=== PATIENT | female | born 1960 | race African-American/Black ===

== ENCOUNTER 2022-01-07 02:41 | Inpatient (IN) | payer OTHER ==
[~2022-01-07] VITALS: Ht 165.1 cm; Wt 80.9 kg
[~2022-01-07 02:41] MED LIST: ALBUTEROL; ATOR10TA MT; FLUT1DIS3 INH; FURO40TA5 MT; HYDR-4001 PO; LOSA100T3 PO; NICO-681 TD; NIFE90TA2 MT; P20 MT; ZOLP5TAB2 MT
[2022-01-07] MEDS ORDERED: NITROGLYCERIN 0.4MG TABLET SL SL PRN (03:30)
[2022-01-07] MEDS ORDERED: ASPIRIN 81MG TABLET PO ONE (03:30)
[2022-01-07 04:15] LABS: HEMATOCRIT. 41.2 % (36.0-48.0); HEMOGLOBIN. 13.6 g/dL (12.0-16.0); MEAN CORPUSCULAR HEMOGLOBIN 32.6 pg (28.0-32.0); MEAN CORPUSCULAR VOLUME 98.7 fL (81.0-99.0); MEAN PLATELET VOLUME 8.9 fl (7.4-10.4); PLATELET 158 x1000/uL (130-400); RED BLOOD CELL COUNT 4.18 mill/uL (4.2-5.4); RED CELL DISTRIBUTION WIDTH 14.5 % (11.6-14.6)
[2022-01-07 04:33] LABS: CHLORIDE 103 mEq/L (98-107)
[2022-01-07] MEDS ORDERED: CEFTRIAXONE 1 G PREMIX 50 ML IV ONE (05:45)
[2022-01-07] MEDS ORDERED: AZITHROMYCIN 500MG/250ML 250 ML IV ONE (05:45)
[2022-01-07] MEDS ORDERED: ALBUTEROL (0.083%) 2.5MG/3ML NEB HHN SCH (06:00)
[2022-01-07] MEDS ORDERED: ALBUTEROL (0.083%) 2.5MG/3ML NEB ONE (06:34)
[2022-01-07] MEDS ORDERED: ACETAMINOPHEN 325MG TABLET PO PRN ×2 (08:00)
[2022-01-07] MEDS ORDERED: MAGNESIUM/ALUMINUM HYDROXIDE/SIMETHICONE 30ML UDC PO PRN (08:00)
[2022-01-07] MEDS ORDERED: CLONIDINE 0.1MG TABLET PO PRN (08:00)
[2022-01-07] MEDS ORDERED: GUAIFENESIN 200MG/10ML SUGAR FREE UDC PO PRN (08:00)
[2022-01-07] MEDS ORDERED: DOCUSATE SODIUM 100MG CAPSULE PO PRN (08:00)
[2022-01-07] MEDS ORDERED: IPRATROPIUM/ALBUTEROL 0.5-3(2.5)MG/3ML NEB NEB PRN (08:00)
[2022-01-07] MEDS ORDERED: ONDANSETRON HCL 4MG/2ML INJ IV PRN (08:00)
[2022-01-07] MEDS ORDERED: HYDROCODONE/ACETAMINOPHEN 5/325MG TABLET PO PRN (08:00)
[2022-01-07] MEDS ORDERED: POTASSIUM CHLORIDE 20MEQ TABLET SR PO NR (09:00)
[2022-01-07 09:10] VITALS: BP 159/88
[2022-01-07] MEDS ORDERED: KCL 20MEQ/100ML PREMIX 100 ML IV NR ×2 (09:30→13:00)
[2022-01-07 09:39] VITALS: BP 159/88
[2022-01-07 09:49] LABS: CREATINE KINASE 80 IU/L (26-192); CREATINE KINASE MB FRACTION < 1.0 ng/mL (0.5-3.6)
[2022-01-07] MEDS: LOSARTAN POTASSIUM 100 MG TABLET PO SCH (10:12)
[2022-01-07] MEDS: ENOXAPARIN 40MG/0.4ML SYR SUBCUT SCH (10:13)
[2022-01-07] MEDS: NIFEDIPINE XL 90MG TAB PO SCH (10:13)
[2022-01-07] MEDS: FUROSEMIDE 40MG/4ML VIAL IVP SCH (10:14)
[2022-01-07 10:15] LABS: PLATELET ESTIMATE NORMAL
[2022-01-07] MEDS ORDERED: NALOXONE HCL 0.4MG/ML VIAL IV PRN (11:30)
[2022-01-07 12:00] VITALS: BP 140/68
[2022-01-07] MEDS ORDERED: IOHEXOL-350 100 ML BOTTLE ONE (13:48)
[2022-01-07] MEDS: IPRATROPIUM/ALBUTEROL 0.5-3(2.5)MG/3ML NEB NEB SCH ×2 (14:16→19:46)
[2022-01-07] MEDS ORDERED: SODIUM CHLORIDE 3% FOR INH 4ML UD NEB INH NR (15:00)
[2022-01-07 15:32] LABS: CLARITY URINE CLOUDY (CLEAR); COLOR URINE YELLOW (YELLOW); KETONES URINE NEGATIVE (NEGATIVE); LEUKOCYTE ESTERASE URINE 2+ (NEGATIVE); NITRITE URINE NEGATIVE (NEGATIVE); OCCULT BLOOD URINE TRACE (NEGATIVE); PH URINE 5.5 (4.5-8.0); PROTEIN URINE TRACE (NEGATIVE); SPECIFIC GRAVITY URINE 1.011 (1.005-1.030)
[2022-01-07 16:00] VITALS: BP 114/73
[2022-01-07] MEDS: ACETYLCYSTEINE 100MG/ML 10% VIAL 4ML INH SCH (16:36)
[2022-01-07 20:00] VITALS: BP 130/77
[2022-01-07] MEDS: ATORVASTATIN CALCIUM 10MG TABLET PO SCH (20:50)
[2022-01-07] MEDS: FAMOTIDINE 20MG TABLET PO SCH (20:50)
[2022-01-07 21:00] LABS: CREATINE KINASE 73 IU/L (26-192); CREATINE KINASE MB FRACTION < 1.0 ng/mL (0.5-3.6)
[2022-01-07] MEDS: ZOLPIDEM TARTRATE 5MG TABLET PO PRN (21:15)
[2022-01-08] VITALS: BP 143/79
[2022-01-08] MEDS: IPRATROPIUM/ALBUTEROL 0.5-3(2.5)MG/3ML NEB NEB SCH ×4 (00:50→21:20)
[2022-01-08] MEDS: ACETYLCYSTEINE 100MG/ML 10% VIAL 4ML INH SCH ×4 (00:51→21:20)
[2022-01-08 01:16] LABS: CREATINE KINASE 60 IU/L (26-192); CREATINE KINASE MB FRACTION < 1.0 ng/mL (0.5-3.6)
[2022-01-08 04:00] VITALS: BP 138/86
[2022-01-08] MEDS: AZITHROMYCIN 500 MG in DEXT 5% WATER 250 ML IV SCH (05:46)
[2022-01-08] MEDS ORDERED: AZITHROMYCIN 500 MG in DEXT 5% WATER 250 ML IV SCH (06:00)
[2022-01-08] MEDS ORDERED: CEFTRIAXONE 1,000 MG in DEXTROSE 5% WATER 50 ML IV SCH (06:00)
[2022-01-08 07:15] LABS: HEMATOCRIT. 36.5 % (36.0-48.0); MEAN CORPUSCULAR HEMOGLOBIN 32.6 pg (28.0-32.0); MEAN PLATELET VOLUME 8.8 fl (7.4-10.4); PLATELET 145 x1000/uL (130-400); RED BLOOD CELL COUNT 3.69 mill/uL (4.2-5.4); RED CELL DISTRIBUTION WIDTH 14.9 % (11.6-14.6)
[2022-01-08 08:00] VITALS: BP 127/72
[2022-01-08 10:02] LABS: CHLORIDE 103 mEq/L (98-107)
[2022-01-08 10:25] LABS: HDL CHOLESTEROL 56 mg/dL (40-59); LDL CHOLESTEROL 38 mg/dL (5-100); T4 FREE 1.33 ng/dL (0.76-1.46)
[2022-01-08] MEDS: LOSARTAN POTASSIUM 100 MG TABLET PO SCH (10:49)
[2022-01-08] MEDS: ENOXAPARIN 40MG/0.4ML SYR SUBCUT SCH (10:49)
[2022-01-08] MEDS: FAMOTIDINE 20MG TABLET PO SCH ×2 (10:49→21:43)
[2022-01-08] MEDS: NIFEDIPINE XL 90MG TAB PO SCH (10:49)
[2022-01-08] MEDS: FUROSEMIDE 40MG/4ML VIAL IVP SCH (10:50)
[2022-01-08] MEDS: CEFTRIAXONE 1,000 MG in DEXTROSE 5% WATER 50 ML IV SCH (10:50)
[2022-01-08 12:00] VITALS: BP 148/70
[2022-01-08] MEDS ORDERED: POTASSIUM CHLORIDE 20MEQ TABLET SR PO SCH (12:00)
[2022-01-08] MEDS ORDERED: KCL 20MEQ/100ML PREMIX 100 ML IV SCH (13:00)
[2022-01-08] MEDS: SODIUM CHLORIDE 0.45% 1,000 ML IV SCH (15:01)
[2022-01-08 16:00] VITALS: BP 109/68
[2022-01-08 16:03] LABS: PLATELET ESTIMATE NORMAL
[2022-01-08 20:00] VITALS: BP 128/66
[2022-01-08] MEDS: ATORVASTATIN CALCIUM 10MG TABLET PO SCH (21:43)
[2022-01-08] MEDS: ZOLPIDEM TARTRATE 5MG TABLET PO PRN (23:36)
[2022-01-09] VITALS: BP 117/73
[2022-01-09] MEDS: IPRATROPIUM/ALBUTEROL 0.5-3(2.5)MG/3ML NEB NEB SCH ×3 (01:58→14:02)
[2022-01-09] MEDS: SODIUM CHLORIDE 0.45% 1,000 ML IV SCH (02:26)
[2022-01-09 04:00] VITALS: BP 120/79
[2022-01-09] MEDS: AZITHROMYCIN 500 MG in DEXT 5% WATER 250 ML IV SCH (06:23)
[2022-01-09 06:34] LABS: HEMOGLOBIN 11.7 g/dL (12.0-16.0); MEAN CORPUSCULAR VOLUME 98.6 fL (81.0-99.0); PLATELET 158 x1000/uL (130-400); RED BLOOD CELL COUNT 3.55 mill/uL (4.2-5.4)
[2022-01-09 07:13] LABS: CHLORIDE 102 mEq/L (98-107)
[2022-01-09 07:23] LABS: PHOSPHORUS 3.4 mg/dL (2.5-4.9)
[2022-01-09 08:02] VITALS: BP 120/75
[2022-01-09] MEDS: ACETYLCYSTEINE 100MG/ML 10% VIAL 4ML INH SCH (08:05)
[2022-01-09] MEDS ORDERED: POTASSIUM CHLORIDE 20MEQ/PACKET PO NR (08:45)
[2022-01-09] MEDS: FUROSEMIDE 40MG/4ML VIAL IVP SCH (08:47)
[2022-01-09] MEDS: CEFTRIAXONE 1,000 MG in DEXTROSE 5% WATER 50 ML IV SCH (08:48)
[2022-01-09] MEDS: FAMOTIDINE 20MG TABLET PO SCH (08:48)
[2022-01-09] MEDS: ENOXAPARIN 40MG/0.4ML SYR SUBCUT SCH (08:48)
[2022-01-09] MEDS: LOSARTAN POTASSIUM 100 MG TABLET PO SCH (08:48)
[2022-01-09] MEDS: NIFEDIPINE XL 90MG TAB PO SCH (08:48)
[2022-01-09 12:03] VITALS: BP 139/87
[2022-01-09] MEDS ORDERED: AZIT250T12 PO (13:01)
[2022-01-09] MEDS ORDERED: ALBU6.7H15 INH (13:01)
[2022-01-09] MEDS ORDERED: AMOX1TAB16 MT (13:01)
[2022-01-09] MEDS ORDERED: ZOLP5TAB2 PO (13:08)
[2022-01-09 13:49] VITALS: BP 139/87
== END 2022-01-09 14:50 | disposition home or self-care (01) | DRG 193 ==
LOC: ER 03:08 → 8WST 05:39 → SUPCPDRO 07:09 → ENRESERV 07:42
PROVIDERS: ADMIT Internal Medicine; ATTEND Internal Medicine
DX: J18.9 Pneumonia, unspecified organism (principal); I50.33 Acute on chronic diastolic (congestive) heart failure; J96.01 Acute respiratory failure with hypoxia; E44.1 Mild protein-calorie malnutrition; I11.0 Hypertensive heart disease with heart failure; Z20.822 Contact with and (suspected) exposure to COVID-19; E78.5 Hyperlipidemia, unspecified; E87.6 Hypokalemia; E11.65 Type 2 diabetes mellitus with hyperglycemia; G47.00 Insomnia, unspecified; D72.829 Elevated white blood cell count, unspecified; J44.9 Chronic obstructive pulmonary disease, unspecified; I27.20 Pulmonary hypertension, unspecified; I34.0 Nonrheumatic mitral (valve) insufficiency; F17.210 Nicotine dependence, cigarettes, uncomplicated; Z68.29 Body mass index [BMI] 29.0-29.9, adult; Z82.49 Family history of ischemic heart disease and other diseases of the circulatory system; Z79.899 Other long term (current) drug therapy
CPT/HCPCS: 36415; 71045; 71275; 80053; 80061; 81003; 82550; 82553; 83036; 83605; 83735; 83880; 84100; 84145; 84439; 84443; 84484; 85025; 85027; 87426; 87804; 93005; 93306; 94640; 99285; J0456; J0696; J1650; J1940; J3480; J7060; J7608; Q9967

== ENCOUNTER 2022-08-29 10:52 | Emergency (ER) | payer MEDICARE, OTHER ==
[~2022-08-29] VITALS: Ht 167.6 cm; Wt 91.0 kg
[~2022-08-29 10:52] MED LIST changes: +ALBU6.7H15 INH; +AMOX1TAB16 MT; +AZIT250T12 PO; -HYDR-4001 PO; -LOSA100T3 PO; +LOSA100T4 PO; -ZOLP5TAB2 MT; +ZOLP5TAB2 PO
[2022-08-29 10:58] VITALS: O2SAT 98
[2022-08-29 12:04] LABS: BASOPHILS % 0.9 % (0.0-2.0); EOSINOPHILS % 0.6 % (0.0-5.0); HEMATOCRIT. 43.5 % (36.0-48.0); HEMOGLOBIN. 14.6 g/dL (12.0-16.0); LYMPHOCYTES % 8.3 % (20.0-50.0); MEAN CORPUSCULAR HEMOGLOBIN 30.7 pg (28.0-32.0); MEAN CORPUSCULAR VOLUME 91.4 fL (81.0-99.0); NEUTROPHILS % 80.2 % (40.0-76.0); PLATELET 137 x1000/uL (130-400); RED BLOOD CELL COUNT 4.76 mill/uL (4.2-5.4)
[2022-08-29 12:06] LABS: CHLORIDE 108 mEq/L (98-107)
[2022-08-29 12:13] LABS: CREATINE KINASE 634 IU/L (26-192)
[2022-08-29 12:20] LABS: INR 1.1; PROTHROMBIN TIME 12.2 sec (9.6-11.0)
[2022-08-29] MEDS ORDERED: SODIUM CHL 0.9% + KCL 20MEQ/L 1,000 ML IV STA (12:40)
[2022-08-29] MEDS ORDERED: POTASSIUM CHLORIDE 20MEQ/PACKET PO ONE (12:45)
[2022-08-29] MEDS ORDERED: HYDRALAZINE 20MG/ML VIAL IV ONE (12:45)
[2022-08-29 13:23] LABS: CLARITY URINE CLOUDY (CLEAR); COLOR URINE YELLOW (YELLOW); KETONES URINE 1+ (NEGATIVE); LEUKOCYTE ESTERASE URINE NEGATIVE (NEGATIVE); NITRITE URINE NEGATIVE (NEGATIVE); OCCULT BLOOD URINE TRACE (NEGATIVE); PROTEIN URINE 1+ (NEGATIVE); SPECIFIC GRAVITY URINE 1.012 (1.005-1.030)
[2022-08-29] MEDS ORDERED: LOSARTAN POTASSIUM 50 MG TABLET PO ONE (14:15)
[2022-08-29] MEDS ORDERED: CLONIDINE 0.3MG TABLET PO ONE (14:15)
[2022-08-29] MEDS ORDERED: AMLODIPINE 10MG TABLET PO ONE (14:15)
[2022-08-29 19:36] VITALS: BP 142/94; PULSE 76; RESP 19; TEMP 98.8
== END 2022-08-29 20:06 | disposition short-term general hospital (02) ==
LOC: ER 10:52 → CANBEDREQ 21:45
DX: M25.551 Pain in right hip (principal); I10 Essential (primary) hypertension; Z79.899 Other long term (current) drug therapy; Z20.822 Contact with and (suspected) exposure to COVID-19
CPT/HCPCS: 99285; 96374; 70450; 71045; 96361; 87426; 80053; 81003; 82550; 85025; 85610; 36415; 73502; 73552; J0360; J3480; C9803